=== PATIENT | female | born 1945 | race Caucasian/White ===

== ENCOUNTER 2021-08-05 19:28 | Emergency (ER) | payer MEDICARE, OTHER ==
[2021-08-05] MEDS ORDERED: LORazepam 1 MG Tab PO ONE (21:33)
[2021-08-05] MEDS ORDERED: Cefdinir 300 MG Cap PO ONE (21:33)
[2021-08-05] MEDS ORDERED: Haloperidol Lactate 5 MG/ML SDV IM ONE (21:43)
== END 2021-08-05 23:00 ==
LOC: JD.ED 19:28
DX: N39.0 Urinary tract infection, site not specified (principal); R45.1 Restlessness and agitation; F03.90 Unspecified dementia, unspecified severity, without behavioral disturbance, psychotic disturbance, mood disturbance, and anxiety
CPT/HCPCS: 36415; 80053; 81001; 85025; 87086; 96372; 99285; A9270-GY; J1630

== ENCOUNTER 2023-01-12 19:12 | Emergency (ER) | payer MEDICARE, OTHER ==
[2023-01-12] MEDS ORDERED: HYDROmorphone 0.5 MG/0.5 ML Syringe IVPUSH ONE ×2 (19:33→21:16)
[2023-01-12] MEDS ORDERED: Ondansetron 4 MG/2 ML SDV IVPUSH ONE (19:33)
[2023-01-12] MEDS ORDERED: Sodium Chloride 0.9% 1,000 ML IV SCH (22:45)
== END 2023-01-13 01:23 ==
LOC: JD.ED 19:12
DX: S72.002A Fracture of unspecified part of neck of left femur, initial encounter for closed fracture (principal); E78.00 Pure hypercholesterolemia, unspecified; I10 Essential (primary) hypertension; K21.9 Gastro-esophageal reflux disease without esophagitis; M06.9 Rheumatoid arthritis, unspecified; Z79.899 Other long term (current) drug therapy; Z88.8 Allergy status to other drugs, medicaments and biological substances; Z91.013 Allergy to seafood; Z91.041 Radiographic dye allergy status; W19.XXXA Unspecified fall, initial encounter
CPT/HCPCS: 73502; 73560; 96374; 96375; 96376; 99284; J1170; J2405; J7030; 99285

== ENCOUNTER 2023-11-28 16:41 | Emergency (ER) | payer MEDICARE, OTHER ==
[2023-11-28 17:28] LABS: APPEARANCE,URINE CLEAR (Clear); BILIRUBIN,URINE NEGATIVE (Negative); COLOR,URINE YELLOW (Yellow); GLUCOSE,URINE NEGATIVE (Negative); KETONES,URINE NEGATIVE (Negative); LEUKOCYTE ESTERASE,URINE NEGATIVE (Negative); NITRITE,URINE NEGATIVE (Negative); OCCULT BLOOD,URINE NEGATIVE (Negative); PROTEIN,URINE NEGATIVE (Negative); UROBILINOGEN,URINE 0.2 (0.2-1.0)
[2023-11-28] MEDS: Sodium Chloride 0.9% 10 ML Syringe FLUSH PRN (17:30)
[2023-11-28 17:36] LABS: BASOPHILS ABSOLUTE AUTO 0.1 K/mm3 (0.0-0.2); BASOPHILS PERCENT AUTO 0.9 % (0.0-1.0); EOSINOPHILS ABSOLUTE AUTO 0.1 K/mm3 (0.0-0.4); EOSINOPHILS PERCENT AUTO 1.5 % (0.0-6.0); HEMATOCRIT 38.8 % (37.0-47.0); HEMOGLOBIN 12.5 gm/dl (12.0-16.0); IMMATURE GRAN ABSOLUTE AUTO 0.02 K/mm3 (0.00-0.05); IMMATURE GRAN PERCENT AUTO 0.3 % (0.0-0.4); LYMPHOCYTES ABSOLUTE AUTO 1.7 K/mm3 (1.0-4.8); LYMPHOCYTES PERCENT AUTO 24.1 % (24.0-44.0); MEAN CORPUSCULAR HEMOGLOBIN 31.3 pg (28.0-32.0); MEAN CORPUSCULAR HGB CONC 32.2 g/dl (32.0-36.0); MEAN PLATELET VOLUME 10.5 fl (9.4-12.3); MONOCYTES ABSOLUTE AUTO 0.7 K/mm3 (0.0-0.8); MONOCYTES PERCENT AUTO 9.9 % (0.0-8.0); NEUTROPHILS ABSOLUTE AUTO 4.3 K/mm3 (1.8-7.7); NEUTROPHILS PERCENT AUTO 63.3 % (41.0-71.0); PLATELET COUNT,PLT 266 K/mm3 (150-400); WHITE BLOOD CELL COUNT,WBC 6.84 K/mm3 (3.9-11.3)
[2023-11-28 18:03] LABS: ALANINE AMINOTRANSFERASE,ALT 33 U/L (14-59); ALBUMIN 3.4 g/dl (3.4-5.0); ALKALINE PHOSPHATASE 64 U/L (46-116); ASPARTATE AMNIOTRANSFERASE,AST 24 U/L (15-37); BILIRUBIN TOTAL 0.2 mg/dL (0.2-1.0); BLOOD UREA NITROGEN,BUN 15 mg/dL (7-18); BUN/CREATININE RATIO 21.4 (14-18); CALCIUM 8.7 mg/dL (8.5-10.1); CARBON DIOXIDE,CO2 27 mEq/L (21-32); CHLORIDE,CL 106 mEq/L (98-107); CREATININE 0.7 mg/dL (0.55-1.02); ESTIMATED GFR 90 mL/min (>60); GLUCOSE RANDOM 104 mg/dL (70-99); LACTIC ACID 1.6 mmol/L (0.4-2.0); PROTEIN TOTAL,TP 6.8 g/dl (6.4-8.2); SODIUM,NA 143 mEq/L (136-145); TROPONIN I HIGH SENSITIVITY 6 pg/mL (<=51)
[2023-11-28] MEDS: Sodium Chloride 0.9% 1,000 ML IV SCH (18:40)
== END 2023-11-28 20:15 | disposition home or self-care (01) ==
LOC: JD.ED 16:41
DX: G30.9 Alzheimer's disease, unspecified (principal); I10 Essential (primary) hypertension; K21.9 Gastro-esophageal reflux disease without esophagitis; E78.00 Pure hypercholesterolemia, unspecified; Z91.013 Allergy to seafood; Z91.041 Radiographic dye allergy status; Z88.8 Allergy status to other drugs, medicaments and biological substances; Z79.899 Other long term (current) drug therapy
CPT/HCPCS: 36415; 80053; 81003; 83605; 83880; 84484; 85025; 93005; 96360; 99284; C1758; J3490; J7030; 93010; 99283

== ENCOUNTER 2024-01-25 14:27 | Inpatient (IN) | payer MEDICARE, OTHER ==
[2024-01-25 15:28] LABS: APPEARANCE,URINE CLEAR (Clear); BILIRUBIN,URINE NEGATIVE (Negative); COLOR,URINE YELLOW (Yellow); GLUCOSE,URINE NEGATIVE (Negative); KETONES,URINE NEGATIVE (Negative); LEUKOCYTE ESTERASE,URINE 1+ (Negative); NITRITE,URINE POSITIVE (Negative); OCCULT BLOOD,URINE NEGATIVE (Negative); PH,URINE 6.5 (5.0-8.0); PROTEIN,URINE NEGATIVE (Negative); UROBILINOGEN,URINE 0.2 (0.2-1.0)
[2024-01-25 16:08] LABS: BACTERIA,URINE MANY /hpf (FEW); MUCUS,URINE FEW /hpf (FEW); RBC,URINE 0-5 /hpf (0-5); SQUAMOUS EPITHELIAL CELLS,UR 0-5 /hpf (0-5); WBC,URINE 30-40 /hpf (0-5)
[2024-01-25 18:57] LABS: BASOPHILS ABSOLUTE AUTO 0.1 K/mm3 (0.0-0.2); BASOPHILS PERCENT AUTO 0.8 % (0.0-1.0); EOSINOPHILS ABSOLUTE AUTO 0.1 K/mm3 (0.0-0.4); EOSINOPHILS PERCENT AUTO 1.2 % (0.0-6.0); HEMOGLOBIN 14.1 gm/dl (12.0-16.0); IMMATURE GRAN ABSOLUTE AUTO 0.02 K/mm3 (0.00-0.05); IMMATURE GRAN PERCENT AUTO 0.3 % (0.0-0.4); LYMPHOCYTES ABSOLUTE AUTO 1.6 K/mm3 (1.0-4.8); LYMPHOCYTES PERCENT AUTO 24.5 % (24.0-44.0); MEAN CORPUSCULAR HEMOGLOBIN 31.6 pg (28.0-32.0); MEAN CORPUSCULAR VOLUME 98.7 fl (83.0-99.0); MEAN PLATELET VOLUME 10.1 fl (9.4-12.3); MONOCYTES ABSOLUTE AUTO 0.7 K/mm3 (0.0-0.8); MONOCYTES PERCENT AUTO 10.3 % (0.0-8.0); NEUTROPHILS ABSOLUTE AUTO 4.2 K/mm3 (1.8-7.7); NEUTROPHILS PERCENT AUTO 62.9 % (41.0-71.0); PLATELET COUNT,PLT 277 K/mm3 (150-400); RED BLOOD CELL COUNT 4.46 M/mm3 (4.10-5.30)
[2024-01-25 19:16] LABS: ALBUMIN 3.6 g/dl (3.4-5.0); BILIRUBIN TOTAL 0.5 mg/dL (0.2-1.0); BUN/CREATININE RATIO 25.7 (14-18); CALCIUM 8.8 mg/dL (8.5-10.1); CREATININE 0.7 mg/dL (0.55-1.02); EST CRCL DRUG DOSING (CG) 59.04 mL/min; PROTEIN TOTAL,TP 7.1 g/dl (6.4-8.2)
[2024-01-25] MEDS: Amoxicillin/Clavulanate K 875-125 MG Tab PO ONE (20:56)
[2024-01-25] MEDS: Amoxicillin/Clavulanate K 875-125 MG Tab ONE (20:56)
[2024-01-25] MEDS ORDERED: Acetaminophen 325 MG Tab PO PRN (21:37)
[2024-01-26] MEDS: Amitriptyline 25 MG Tab PO SCH (05:14)
[2024-01-26] MEDS: LORazepam 0.5 MG Tab PO SCH (05:15)
[2024-01-26] MEDS: Tamsulosin 0.4 MG Cap.ER PO ONE (09:59)
[2024-01-26] MEDS ORDERED: PALIPERIDONE 3 MG PO SCH (10:00)
[2024-01-26] MEDS: Gabapentin 300 MG Cap PO SCH (10:51)
[2024-01-26] MEDS: Furosemide 40 MG Tab PO SCH (10:51)
[2024-01-26] MEDS: Amoxicillin/Clavulanate K 875-125 MG Tab PO SCH (10:52)
[2024-01-26] MEDS: Saccharomyces Boulardii (Probiotic) 250 MG Cap PO SCH (10:52)
[2024-01-26] MEDS: Sodium Chloride 0.9% 1,000 ML IV SCH (17:14)
[2024-01-26] MEDS ORDERED: Gabapentin 600 MG Tab PO SCH (21:00)
[2024-01-26] MEDS: cefTRIAXone 1 GM in Sodium Chloride 0.9% 100 ML IV SCH (21:11)
[2024-01-26] MEDS: Melatonin 3 MG Tab PO SCH (21:16)
[2024-01-26] MEDS: Gabapentin 600 MG Tab PO SCH (21:16)
[2024-01-27 06:05] LABS: BASOPHILS PERCENT AUTO 0.7 % (0.0-1.0); EOSINOPHILS ABSOLUTE AUTO 0.1 K/mm3 (0.0-0.4); EOSINOPHILS PERCENT AUTO 1.5 % (0.0-6.0); HEMATOCRIT 44.1 % (37.0-47.0); HEMOGLOBIN 14.4 gm/dl (12.0-16.0); IMMATURE GRAN ABSOLUTE AUTO 0.01 K/mm3 (0.00-0.05); IMMATURE GRAN PERCENT AUTO 0.2 % (0.0-0.4); LYMPHOCYTES ABSOLUTE AUTO 1.4 K/mm3 (1.0-4.8); LYMPHOCYTES PERCENT AUTO 23.5 % (24.0-44.0); MEAN CORPUSCULAR HEMOGLOBIN 32.1 pg (28.0-32.0); MEAN CORPUSCULAR HGB CONC 32.7 g/dl (32.0-36.0); MEAN CORPUSCULAR VOLUME 98.2 fl (83.0-99.0); MEAN PLATELET VOLUME 10.2 fl (9.4-12.3); MONOCYTES ABSOLUTE AUTO 0.6 K/mm3 (0.0-0.8); MONOCYTES PERCENT AUTO 10.1 % (0.0-8.0); NEUTROPHILS ABSOLUTE AUTO 3.8 K/mm3 (1.8-7.7); PLATELET COUNT,PLT 281 K/mm3 (150-400); RED BLOOD CELL COUNT 4.49 M/mm3 (4.10-5.30); WHITE BLOOD CELL COUNT,WBC 5.86 K/mm3 (3.9-11.3)
[2024-01-27 06:55] LABS: ANION GAP 13.7 (5-15); CALCIUM 8.2 mg/dL (8.5-10.1); CREATININE 0.6 mg/dL (0.55-1.02); EST CRCL DRUG DOSING (CG) 68.88 mL/min; POTASSIUM,K 3.7 mEq/L (3.5-5.1)
[2024-01-28 06:17] LABS: ANION GAP 14.5 (5-15); BUN/CREATININE RATIO 22.9 (14-18); CALCIUM 8.5 mg/dL (8.5-10.1); CREATININE 0.7 mg/dL (0.55-1.02); EST CRCL DRUG DOSING (CG) 59.04 mL/min; POTASSIUM,K 3.5 mEq/L (3.5-5.1)
[2024-01-28] MEDS: Acetaminophen 325 MG Tab PO PRN (14:15)
[2024-01-29] MEDS: Docusate Sodium 100 MG Cap PO PRN (10:36)
[2024-01-29] MEDS: Polyethylene Glycol 3350 Powder 17 GM Packet PO SCH (10:36)
[2024-01-29] MEDS ORDERED: LORazepam 1 MG Tab PO PRN (11:56)
[2024-01-29] MEDS: Enoxaparin 40 MG/0.4 ML Syringe SUBCUT SCH (20:20)
[2024-01-29] MEDS: Melatonin 3 MG Tab PO SCH (20:20)
[2024-01-29] MEDS: traZODone 50 MG Tab PO SCH (20:20)
[2024-01-30] MEDS: Docusate Sodium 100 MG Cap PO PRN (08:33)
[2024-01-30] MEDS: Ferrous Sulfate 324 MG Tab.EC PO SCH (08:33)
[2024-01-30] MEDS: Polyethylene Glycol 3350 Powder 17 GM Packet PO SCH (08:33)
[2024-01-30] MEDS: Pantoprazole 40 MG Tab.CR PO SCH (08:33)
[2024-01-30] MEDS: Potassium Bicarbonate/Cit Ac 20 MEQ Effervescent Tab PO SCH (08:33)
[2024-01-30] MEDS ORDERED: Potassium Chloride 20 MEQ Tab.ER PO SCH (09:00)
[2024-01-31] MEDS: Bisacodyl 10 MG Supp RECTAL PRN (12:21)
[2024-01-31] MEDS: Sennosides/Docusate Sodium 50-8.6 MG Tab PO SCH (15:35)
[2024-02-01] MEDS ORDERED: Polyethylene Glycol 3350 Powder 17 GM Packet PO PRN (09:14)
== END 2024-02-02 09:04 | DRG 690 ==
LOC: JD.ED 14:27 → JD.MS 21:37 → OBSVTOIN 01-28 14:27
PROVIDERS: ADMIT Family Medicine; ATTEND Internal Medicine
DX: N39.0 Urinary tract infection, site not specified (principal); F02.84 Dementia in other diseases classified elsewhere, unspecified severity, with anxiety; K21.9 Gastro-esophageal reflux disease without esophagitis; Z79.899 Other long term (current) drug therapy; Z79.2 Long term (current) use of antibiotics; Z79.1 Long term (current) use of non-steroidal anti-inflammatories (NSAID); F02.83 Dementia in other diseases classified elsewhere, unspecified severity, with mood disturbance; Z91.018 Allergy to other foods; Z88.6 Allergy status to analgesic agent; E78.5 Hyperlipidemia, unspecified; I10 Essential (primary) hypertension; F39 Unspecified mood [affective] disorder; Z66 Do not resuscitate; B96.1 Klebsiella pneumoniae [K. pneumoniae] as the cause of diseases classified elsewhere; R33.9 Retention of urine, unspecified; G30.9 Alzheimer's disease, unspecified; Z88.8 Allergy status to other drugs, medicaments and biological substances; Z91.013 Allergy to seafood
CPT/HCPCS: 36415 ×3; 51701; 51702 ×2; 76770; 80048 ×2; 80053; 81001; 85025 ×2; 87086; 87088 ×2; 87186 ×2; 87641; 99284; A9270 ×20; C1758; J0696 ×2; J3490 ×2; J7030 ×3; U0002; 51798; 96365; 97161-GP; 99283; G0378; J1650